=== PATIENT | female | born 1950 | race Caucasian/White ===

== ENCOUNTER 2024-04-28 10:31 | Outpatient (AMB) | payer MEDICARE, OTHER, SELFPAY ==
--- NOTE | 2024-04-28 10:27 | HO.NEPHOV_ITS ---
Vital Signs 04/28/24 10:32 Height 5 ft 9 in Weight 215 lb BMI 31.7 BP 128/78 Blood Pressure Location Lt brachial Position Sitting Pulse 62 Pulse Source Pulse Oximeter Pulse Oximetry (%) 96 Oxygen Delivery Method Room Air Intake Visit Reasons: Elevated Phosphorus/ Conf Ict Programmer Required: No Accompanied by: Self / Same As Patient Allergies codeine Allergy (Unknown, Verified 04/28/24 10:33) Unknown Penicillins Allergy (Unknown, Verified 04/28/24 10:33) Unknown Medication List - Last Reconciled 04/28/24 by Dave Ruiz MD atorvastatin 40 mg PO DAILY empagliflozin (Jardiance) 10 mg PO DAILY losartan 100 mg PO DAILY omega 3-akt-wgn-fish oil 1,000 mg (120 mg-180 mg) (Fish Oil) 1 cap PO DAILY omeprazole 20 mg PO DAILY PRN propranolol ER 120 mg PO DAILY HPI Comments Details: Pleasant 73-year-old woman with a history of hypertension and dyslipidemia was found to have a serum potassium of 5.1 millimoles per L has been stable with a normal creatinine of 0.8 mg/dL. She has been referred for evaluation of hyperphosphatemia. She has been taking high dose of vitamin-D supplementation. She also drinks diet Coke once a day along with ice tea. Otherwise she is on a regular diet [facility] Medical History (Updated 04/28/24 @ 13:57 by Dave Ruiz MD) Vitamin D deficiency Obesity Non-alcoholic fatty liver disease Multiple sclerosis Migraine without aura Medicare annual wellness visit, initial Hyperlipidemia Gastroesophageal reflux disease Common migraine Cobalamin deficiency Benign essential hypertension Surgical History Hx laparoscopic cholecystectomy History of total abdominal hysterectomy Hx of colonoscopy (~05/2014) H/O endoscopy (~05/2014) Review of Systems Const Denies fever(s) and Denies weight loss Card Denies chest pain Resp Denies cough and Denies hemoptysis GI Denies abdominal pain, Denies diarrhea and Denies nausea Musc Denies back pain Neuro Denies focal weakness Physical Exam Vital Signs: Last Vital Signs Pulse 62 04/28/24 10:32 BP 128/78 04/28/24 10:32 Pulse Ox 96 04/28/24 10:32 Oxygen Delivery Method Room Air 04/28/24 10:32 BMI result Body Mass Index 31.7 Results Reviewed Nephrology Results: No Data to Display Assessment & Plan Assessment & Plan (1) Hyperphosphatemia: Code(s): E83.39 - Other disorders of phosphorus metabolism Category: Medical Plan 81-year-old woman with mild hyperphosphatemia. Renal function is normal. Although increase dietary intake could be contributing factor but this is more common in patients with renal insufficiency. Given the normal renal function we should look for other causes. Excessive vitamin-D intake could be a contributing factor. Other cause possibilities including hypothyroidism should be ruled out. I have initiated workup as outlined below. In the meantime encouraged her to stay away from phosphorus which foods like Coke. I have asked her to discontinue vitamin-D for now we will recheck the phosphorus level and if the level does not return to baseline then she would require further workup. Orders: Orders Comprehensive Met. Panel Today E83.39 - Other disorders of phosphorus metabolism Phosphorus Today E83.39 - Other disorders of phosphorus metabolism TSH reflex Free T4 Today E83.39 - Other disorders of phosphorus metabolism UA and rflx microscopic Today E83.39 - Other disorders of phosphorus metabolism Creatinine Urine Today E83.39 - Other disorders of phosphorus metabolism Vitamin D 25-OH (D2 and D3) Today E83.39 - Other disorders of phosphorus metabolism Parathyroid Hormone Intact Today E83.39 - Other disorders of phosphorus metabolism Phosphorus Urine Random Today E83.39 - Other disorders of phosphorus metabolism Coding Level of Care Code New Pt Level 4 (91573) Diagnoses Hyperphosphatemia E83.39
[2024-04-28 10:32] VITALS: BP 128/78; PULSE 62; O2SAT 96; BMI 31.7
== END 2024-04-28 10:47 | disposition home or self-care (01) ==
PROVIDERS: PCP Family Medicine; Referring Provider Family Medicine; Visit Provider Internal Medicine Hypertension Specialist
DX: E83.39 Other disorders of phosphorus metabolism (principal)
CPT/HCPCS: 99204

== ENCOUNTER 2024-04-28 11:00 | Outpatient (REF) | payer MEDICARE, OTHER, SELFPAY ==
[2024-04-28 17:38] LABS: Appearance Urine Clear; Color Urine Yellow; Glucose Urine UA >=1000 mg/dL (Negative); Leukocyte Esterase Urine Negative (Negative); Nitrite Urine Negative (Negative); PH 6.5 (5.0-9.0); Specific Gravity - Urine >= 1.030 (1.005-1.025); UMIC TRIGGER UA YES; Urine Blood Negative (Negative); Urine Ketones Negative (Negative); Urine Protein Negative (Neg-Trace)
[2024-04-28 18:17] LABS: Phosphorus Urine Random 56.3 mg/dL
[2024-04-28 18:18] LABS: Creatinine Urine 81.83 mg/dL
[2024-04-28 18:18] LABS: Alanine Aminotransferase 16 U/L (0-31); Alkaline Phosphatase 23 U/L (39-117); Anion Gap 12 (12-20); Aspartate Amino Transferase 18 U/L (5-31); Bilirubin Total 0.5 mg/dL (0.0-1.0); Blood Urea Nitrogen 16 mg/dL (9-16); Calcium 9.7 mg/dL (8.4-10.2); Carbon Dioxide 26 mmol/L (22-29); Chloride 107 mmol/L (96-108); Estimated Glomerular Filt Rate > 60; Glucose Random 128 mg/dL (60-115); Phosphorus 4.4 mg/dL (2.7-4.5); Potassium 4.1 mmol/L (3.3-5.1); Sodium 141 mmol/L (135-145); Total Protein 7.5 g/dL (6.5-8.0)
[2024-04-28 18:25] LABS: Parathyroid Hormone Intact 52.6 pg/mL (8.7-77.1)
[2024-04-28 18:28] LABS: TSH reflex Free T4 1.57 uIU/mL (0.32-4.0)
[2024-04-28 20:10] LABS: Bacteria Urine None Seen (None Seen); Hyaline Casts Urine 0-2 /LPF (0-2); RBC Urine 0-2 /HPF (0-2); Squamous Epithelial Cell Urine 0-2 /HPF (0-2); WBC Urine 0-5 /HPF (0-5)
[2024-05-03 16:48] LABS: Vitamin D 25-OH, D2 <4 ng/mL; Vitamin D 25-OH, D3 50 ng/mL; Vitamin D 25-OH, Total 50 ng/mL (30-100)
== END 2024-04-28 11:01 | disposition home or self-care (01) ==
LOC: HO.HKASLDS 11:00
PROVIDERS: Visit Provider Internal Medicine Hypertension Specialist
DX: E83.39 Other disorders of phosphorus metabolism (principal)
CPT/HCPCS: 36415; 80053; 81001; 82306; 82570; 83970; 84100; 84105; 84443; 99202